=== PATIENT | female | born 1985 | race Native Hawaiian/Other Pacific Islander ===

== ENCOUNTER 2017-12-08 07:46 | Inpatient (IN) | payer OTHER ==
[2017-12-08] MEDS ORDERED: Lactated Ringer's 1,000 ML IV ONE (08:00)
[2017-12-08] MEDS ORDERED: ceFAZolin IV 2 gm in Dextrose 2 GM/50 ML BAG IVPB ONE (08:00)
[2017-12-08] MEDS ORDERED: Oxytocin 30 UNIT 30 UNITS/500 ML BAG IV ONE (08:03)
[2017-12-08] MEDS ORDERED: ePHEDrine 50 mg/ml Inj ONE (08:14)
[2017-12-08] MEDS ORDERED: Morphine 1 mg/ml preservative-free Inj(Duramorph) ONE (08:14)
[2017-12-08] MEDS ORDERED: Phenylephrine 10 mg/ml Inj ONE (08:14)
[2017-12-08 08:32] LABS: BASO % 0.6 % (0.0-2.0); EOS # 0.2 K/uL (0.0-0.7); EOS % 1.9 % (0.0-4.0); HEMOGLOBIN 12.9 g/dL (12.0-16.0); LYMPH # 1.6 K/uL (1.0-4.3); LYMPH % 19.4 % (20.0-40.0); MEAN CELL VOLUME 88.7 fl (81.0-99.0); MEAN CORPUSCULAR HEMOGLOBIN 30.1 pg (27.0-31.0); MEAN PLATELET VOLUME 7.8 fl (7.2-11.7); MONO # 0.9 K/uL (0.0-0.8); NEUT # 5.4 K/uL (1.8-7.0); NEUT % 67.1 % (50.0-75.0); NRBC % 0.1 % (0.0-0.0); RBC 4.29 Mil/uL (3.80-5.20); RED CELL DISTRIBUTION WIDTH 13.7 % (11.5-14.5); WHITE BLOOD COUNT 8.1 K/uL (4.8-10.8)
[2017-12-08] MEDS ORDERED: Cellulose Hemostat 2X3 Sheet ONE (10:33)
[2017-12-08] MEDS ORDERED: Morphine 1 mg/ml preservative-free Inj(Duramorph) EPI ONE (12:40)
[2017-12-08] MEDS ORDERED: DiphenhydrAMINE 50 mg/ml Inj IVP PRN (12:40)
[2017-12-08] MEDS ORDERED: DiphenhydrAMINE 50 mg/ml Inj ONE (12:51)
[2017-12-08] MEDS: DiphenhydrAMINE 50 mg/ml Inj IVP PRN (17:57)
[2017-12-08] MEDS ORDERED: Lactated Ringer's 1,000 ML IV SCH (19:00)
--- NOTE | 2017-12-08 19:11 | OBADHP ---
Datetime: 12/08/2017 08:00 Admit Comment, IP Provider: HPI: Vickey is a 32 year old at 39.2 weeks who presents for a repeat . LMP 03/08/2017 with initial dating US at 9 weeks 4 days, condordant with LMP. She denies any contractions, vaginal bleeding or LOF. Good movement currently. ROS: as above, otherwise negative History - at term, urgent due to arrest of dilation and chorioamnionitis, that spent 7 da ys in the NICU for observation - 1 SAB problems Diagnosed with gestational diabetes, currently diet controlled PMH Denies PSH Family History Not significant Medications PNV Allergies Crabs NKDA Social Lives at home with her and daughter, no alcohol, tobacco or drug use OBJECTIVE See PE section labs: A+, antibody neg, Hep B neg, HIV nonreactive, RPR nonreactive, GTT abnormal, GBS ne g, GC/chlamydia neg Assessment/Plan: 32 yo GDMA1 at 39.2 here for repeat . - Pre-op orders entered - Risks, benefits, alternatives discussed with patient and consent form signed Abdomen - PN: Normal Lungs - PN: Normal Heart - PN: Normal HEENT - PN: Normal General - PN: Normal IP Fetus A Comments: Reactive NST FHR - Baseline A Provider: 135 Gestation - Est Wks by US: 39.2 NICHD Variability Prov Fetus A: Moderate 6-25bpm NICHD Accel Fetus A IP Provider: [id number] NICHD Decel Fetus A IP Provider: None IP Adm Impression: Term, intrauterine IP Admit Plan: Admit to unit; Initiate Section protocol
--- NOTE | 2017-12-08 19:14 | OBDS ---
DELIVERY PERSONNEL Delivery Doctor: Gumaro Gaytan MD Tablet Repair: [facility] Anesthesiologist: Dr Mg Resident: Dr Hartley (Fellow) MATERNAL INFORMATION Delivery Anesthesia: Spinal Medications in Delivery: Pitocin Estimated Blood Loss (ml): 800 Placenta Cultured: No Maternal Complications: None Provider Comments: Repeat low flap transverse section via Pfannenstiel incision. Patient de livered viable infant male with Apgars of 9 and 9 at one and 5 minutes respectively. Normal uterus, n ormal tubes and ovaries bilaterally. Estimated blood loss 800 mL Fluids 1500 mL lactated Ringer Urine output 300 mL No complications. LABOR SUMMARY EDC: 12/13/2017 00:00 No. Babies in Womb: 1 Attempted: No Labor Anesthesia: None LABOR INFORMATION Reason for Induction: Not Applicable Oxytocin: N/A Group B Beta Strep: Negative Antibiotics # of Doses: 1 Antibiotics Time of Last Dose: Ancef 2 grams IVPB @ 0945 Steroids Given: None Reason Steroids Not Administered: Not Applicable MEMBRANES Membranes Rupture Method: Artificial Rupture of Membranes: 12/08/2017 10:19 Length of Rupture (hrs): 0.02 Amniotic Fluid Color: Clear Amniotic Fluid Amount: Moderate Amniotic Fluid Odor: Normal STAGES OF LABOR Stage 3 hrs: 0 Stage 3 min: 1 CSECTION DELIVERY Primary Indication: Repeat Elective CSection Urgency: Elective CSection Incidence: Repeat Labor: N/A CSection Incision: Lower Uterine Transverse BABY A INFORMATION Delivery Date/Time: 12/08/2017 10:20 Method of Delivery: Born in Route : No : N/A Forceps: N/A Vacuum Extraction: N/A Shoulder Dystocia : No SHOULDER DYSTOCIA BABY A Infant Delivery Date/Time: 12/08/2017 10:20 PRESENTATION/POSITION BABY A Presentation: Cephalic Cephalic Presentation: Vertex Breech Presentation: N/A PLACENTA INFORMATION BABY A Placenta Delivery Time : 12/08/2017 10:21 Placenta Method of Delivery: Expressed Placenta Status: Delivered SCORES BABY A Heart Rate 1 min: >100 bpm Resp Effort 1 min: Good Cry Reflex Irritability 1 min: Cough or Sneeze or Pulls Away Muscle Tone 1 min: Active Motion Color 1 min: Body [place], Extremities Blue Resuscitation Effort 1 min: Tactile Stimulation SCORE 1 MIN: 9 Heart Rate 5 min: >100 bpm Resp Effort 5 min: Good Cry Reflex Irritability 5 min: Cough or Sneeze or Pulls Away Muscle Tone 5 min: Active Motion Color 5 min: Body [place], Extremities Blue Resuscitation Effort 5 min: N/A SCORE 5 MIN: 9 INFANT INFORMATION BABY A Gestational Age at Delivery: 39.2 Gestational Status: Term Infant Outcome : Liveborn Condition : Stable Sex: Male IDENTIFICATION/MEDS BABY A ID Band Number: [id number] ID Band Location: Left Leg; Left Arm Vitamin K Given : Not Given Erythromycin Given: Not Given WEIGHT/LENGTH BABY A Birthweight (gms): 3740 Infant Weight (lb): 8 Infant Weight (oz): 4 CORD INFORMATION BABY A No. Cord Vessels: 3 Nuchal Cord : N/A Nuchal Cord Other: n/a True Knot: n/a Cord pH Baby Arterial: n/a Cord pH Baby Venous: n/a Cord Blood Taken: Yes Banking/Donate Info: n/a Infant Suction: Mouth ASSESSMENT BABY A Infant Complications: None Physical Findings at Delivery: Within Normal Limits Infant Respirations: Appears Normal Fish Smoker/ALS Called : No Infant Care By: Dr Napier/Kennedy garcia /María Transferred To: Remains with Mother
--- NOTE | 2017-12-08 19:22 | OBDS ---
DELIVERY PERSONNEL Delivery Doctor: Gumaro Gaytan MD Screw Machine Operator [place] Type: [facility] Anesthesiologist: Dr Mg Resident: Dr Hartley (Fellow) MATERNAL INFORMATION Delivery Anesthesia: Spinal Medications in Delivery: Pitocin Estimated Blood Loss (ml): 800 Placenta Cultured: No Maternal Complications: None Provider Comments: Repeat low flap transverse section via Pfannenstiel incision. Patient de livered viable infant male with Apgars of 9 and 9 at one and 5 minutes respectively. Normal uterus, n ormal tubes and ovaries bilaterally. Estimated blood loss 800 mL Fluids 1500 mL lactated Ringer Urine output 300 mL No complications. LABOR SUMMARY EDC: 12/13/2017 00:00 No. Babies in Womb: 1 Attempted: No Labor Anesthesia: None LABOR INFORMATION Reason for Induction: Not Applicable Oxytocin: N/A Group B Beta Strep: Negative Group B Beta Strep: Negative Antibiotics # of Doses: 1 Antibiotics Time of Last Dose: Ancef 2 grams IVPB @ 0945 Steroids Given: None Reason Steroids Not Administered: Not Applicable MEMBRANES Membranes Rupture Method: Artificial Rupture of Membranes: 12/08/2017 10:19 Length of Rupture (hrs): 0.02 Amniotic Fluid Color: Clear Amniotic Fluid Amount: Moderate Amniotic Fluid Odor: Normal STAGES OF LABOR Stage 3 hrs: 0 Stage 3 min: 1 CSECTION DELIVERY Primary Indication: Repeat Elective CSection Urgency: Elective CSection Incidence: Repeat Labor: N/A CSection Incision: Lower Uterine Transverse BABY A INFORMATION Delivery Date/Time: 12/08/2017 10:20 Method of Delivery: Born in Route : No : N/A Forceps: N/A Vacuum Extraction: N/A Shoulder Dystocia : No SHOULDER DYSTOCIA BABY A Infant Delivery Date/Time: 12/08/2017 10:20 PRESENTATION/POSITION BABY A Presentation: Cephalic Cephalic Presentation: Vertex Breech Presentation: N/A PLACENTA INFORMATION BABY A Placenta Delivery Time : 12/08/2017 10:21 Placenta Method of Delivery: Expressed Placenta Status: Delivered SCORES BABY A Heart Rate 1 min: >100 bpm Resp Effort 1 min: Good Cry Reflex Irritability 1 min: Cough or Sneeze or Pulls Away Muscle Tone 1 min: Active Motion Color 1 min: Body [place], Extremities Blue Resuscitation Effort 1 min: Tactile Stimulation SCORE 1 MIN: 9 Heart Rate 5 min: >100 bpm Resp Effort 5 min: Good Cry Reflex Irritability 5 min: Cough or Sneeze or Pulls Away Muscle Tone 5 min: Active Motion Color 5 min: Body [place], Extremities Blue Resuscitation Effort 5 min: N/A SCORE 5 MIN: 9 INFORMATION BABY A Gestational Age at Delivery: 39.2 Gestational Status: Term Infant Outcome : Liveborn Infant Condition : Stable Infant Sex: Male IDENTIFICATION/MEDS BABY A ID Band Number: [id number] ID Band Location: Left Leg; Left Arm Vitamin K Given : Not Given Erythromycin Given: Not Given WEIGHT/LENGTH BABY A Birthweight (gms): 3740 Infant Weight (lb): 8 Weight (oz): 4 CORD INFORMATION BABY A No. Cord Vessels: 3 Nuchal Cord : N/A Nuchal Cord Other: n/a True Knot: n/a Cord pH Baby Arterial: n/a Infant Cord pH Baby Venous: n/a Cord Blood Taken: Yes Banking/Donate Info: n/a Infant Suction: Mouth ASSESSMENT BABY A Complications: None Physical Findings at Delivery: Within Normal Limits Respirations: Appears Normal Well Service Floor Worker/ALS Called : No Care By: Dr Napier/Kennedy garcia /María Transferred To: Remains with Mother
[2017-12-09] MEDS: DiphenhydrAMINE 50 mg/ml Inj IVP PRN (00:51)
--- NOTE | 2017-12-09 05:34 | OP ---
Copied To: Chevy Gaytan MD Attending MD: Chevy Gaytan MD PROCEDURE DATE: 12/08/2017 PREOPERATIVE DIAGNOSIS: Elective repeat section at 39 weeks gestational age. POSTOPERATIVE DIAGNOSIS: Elective repeat section at 39 weeks gestational age. OPERATION PERFORMED: Repeat low flap transverse section via Pfannenstiel incision. OPERATING FINDINGS: Viable infant male with Apgars of 9 and 9 in one and five minutes respectively, normal uterus, normal tubes and ovaries bilaterally, [id number] adhesions between the uterus and omentum and anterior abdominal wall. ESTIMATED BLOOD LOSS: 800 mL. FLUIDS: 1500 mL Lactated Ringer's. URINE OUTPUT: 300 mL of clear urine at the end of procedure. SURGEON: Chevy Gaytan MD PICTURE COPYIST: Dr. Hartley ANESTHESIOLOGIST: Dr. Durán ANESTHESIA: Spinal. COMPLICATIONS: None. DESCRIPTION OF PROCEDURE: The patient was taken to the operating room where spinal anesthesia was found to be adequate. The patient was prepped and draped in a normal sterile fashion in the dorsal supine position with leftward tilt. A Pfannenstiel skin incision was made with a scalpel. This was carried down through to the underlying layer of fascia with the scalpel. Midline dissection was made in the fascial layer with the scalpel. The fascial incision was then extended bilaterally sharply with curved Bonds scissors. The fascial layer was from the underlying rectus muscles both bluntly and sharply with curved Bonds scissors. The rectus muscles were at the midline. The peritoneum was then identified, tented upward with Cindi clamps x2, and entered sharply with Metzenbaum scissors. This peritoneal incision was then extended superiorly and inferiorly with good visualization of the urinary bladder. The bladder blade was inserted into the abdomen. The vesicouterine peritoneum was then identified, tented up with Cindi clamps x2, and entered sharply with Metzenbaum scissors. This peritoneal incision was then extended bilaterally with Metzenbaum scissors. The bladder flap was created digitally. The [place] retractor was placed over the urinary bladder. The uterus was incised with the scalpel. The uterine incision was extended bilaterally bluntly. The 's head was delivered atraumatically. Nose and mouth were suctioned with bulb suction. The remainder of the was delivered without complication. The cord was clamped and cut. The was handed off to awaiting pediatricians. The placenta was removed manually. The uterus was cleared of all clots and debris. The uterine incision was repaired with 0 Vicryl in a running, locked fashion. Reinspection of the uterine incision proved excellent hemostasis. The abdomen and pelvis were irrigated with copious amounts of warm normal saline. Reinspection of the uterine incision proved excellent hemostasis. All instruments were removed from the patient. The peritoneal layer was closed with a running stitch of 2-0 chromic. The rectus muscles were reapproximated with a running stitch of 2-0 chromic. The fascial layer was closed with a running stitch of 0 Vicryl. Subcutaneous tissue was closed with a running stitch of 3-0 plain. The skin was closed with a subcutaneous stitch of 3-0 Vicryl. The patient tolerated the procedure well. All sponge count, lap count, and needle counts were correct x2. The patient was given 1 g of Ancef just prior to the beginning of the procedure. There were no complications. The patient was taken to the recovery room in awake and stable condition. Chevy Gaytan MD
[2017-12-09 06:32] LABS: HEMOGLOBIN 10.3 g/dL (12.0-16.0); MEAN CELL VOLUME 88.6 fl (81.0-99.0); MEAN CORPUSCULAR HEMOGLOBIN 30.6 pg (27.0-31.0); MEAN CORPUSCULAR HGB CONC 34.5 g/dL (33.0-37.0); RBC 3.37 Mil/uL (3.80-5.20); RED CELL DISTRIBUTION WIDTH 13.7 % (11.5-14.5); WHITE BLOOD COUNT 9.8 K/uL (4.8-10.8)
[2017-12-09] MEDS ORDERED: Multivitamin With Minerals Tab PO SCH (09:00)
[2017-12-09] MEDS: Multivitamin With Minerals Tab PO SCH (09:11)
--- NOTE | 2017-12-09 10:51 | OBPPN ---
Datetime: 12/09/2017 10:47 PP Pain Prov: Within normal limits PP Nausea Prov: Denies PP Flatus Prov: Yes PP Breasts Prov: Normal PP Heart Prov: Normal PP Lungs Prov: Normal PP Abdomen/Uterus Prov: Normal PP Lochia Prov: Normal PP Vulva/Perineum Prov: Normal PP CVA Tenderness Prov: Normal PP Extremities Prov: Normal PP Comments Phys Exam Prov: Abd: Soft,NT, BS - present UT - Firm Incison: Clean and dry PP Impression Prov: Normal progression PP Plan Prov: Continue present management PP Progress Note Prov: S/P Repeat Delivery, POD #1 Clinically Stable. Plan: Continue Care. Encourage ambulation
[2017-12-09] MEDS ORDERED: Oxycodone/Acetaminophen 5/325 mg Tab PO PRN (19:02)
[2017-12-09] MEDS: Oxycodone/Acetaminophen 5/325 mg Tab PO PRN (19:24)
[2017-12-10] MEDS: Oxycodone/Acetaminophen 5/325 mg Tab PO PRN ×4 (03:30→22:22)
[2017-12-10] MEDS: Multivitamin With Minerals Tab PO SCH (08:16)
--- NOTE | 2017-12-10 11:13 | OBPPN ---
Datetime: 12/10/2017 11:07 PP Pain Prov: Within normal limits PP Nausea Prov: Denies PP Flatus Prov: Yes PP Breasts Prov: Normal PP Heart Prov: Normal PP Lungs Prov: Normal PP Abdomen/Uterus Prov: Normal PP Lochia Prov: Normal PP Vulva/Perineum Prov: Normal PP CVA Tenderness Prov: Normal PP Extremities Prov: Normal PP Comments Phys Exam Prov: Abd: Soft, NT, BS- present Uterus- Firm No calf tenderness Bilaterally PP Impression Prov: Normal progression PP Plan Prov: Continue present management PP Progress Note Prov: S/P Repeat Section, POD #2 Clinically Stable. Plan: Continue care.
[2017-12-11] MEDS: Oxycodone/Acetaminophen 5/325 mg Tab PO PRN (05:23)
--- NOTE | 2017-12-11 10:40 | OBPPN ---
Datetime: 12/11/2017 10:36 PP Pain Prov: Within normal limits PP Nausea Prov: Denies PP Flatus Prov: Yes PP Breasts Prov: Normal PP Heart Prov: Normal PP Lungs Prov: Normal PP Abdomen/Uterus Prov: Normal PP Lochia Prov: Normal PP Vulva/Perineum Prov: Normal PP CVA Tenderness Prov: Normal PP Extremities Prov: Normal PP Comments Phys Exam Prov: Fundus firm under umbilicus Incision clean/dry/intact PP Impression Prov: Normal progression PP Plan Prov: Continue present management PP Progress Note Prov: Patient denies CP, no SOB, no N/V, tolerating PO diet, ambulating/voiding wel l, mild lochia, abdominal pain tolerable with meds A/P POD #3 1. Discharge home 2. Discharge instructions reviewed IP PP Procedures: None Vital Signs Provider PP: Reviewed; Within Normal Limits
--- NOTE | 2017-12-11 10:40 | OBDCSUM ---
Datetime: 12/11/2017 10:37 Discharged to, Provider: Home Follow up at, Provider: OB Disch Instr Activity: Normal activity Disch Instr Diet: Regular Discharge Instructions, Provider: Routine instructions given Discharge Diagnosis, Provider: Term Delivered Discharge Time: 12/11/2017 10:38 Follow up in weeks, Provider: 1 wk and 6 wks Disch Referrals: None Contraception discussed, Prov: Yes
[2017-12-11 16:29] VITALS: BP 131/59; PULSE 97; RESP 20; TEMP 98.3; O2SAT 99
== END 2017-12-11 11:45 | disposition home or self-care (01) | DRG 766 ==
LOC: H.EROB2 07:46 → H.L&D 08:24 → H.OB/GYN 15:47
PROVIDERS: ADMIT Obstetrics & Gynecology; ATTEND Obstetrics & Gynecology
PROC: 10D00Z1 Extraction of Products of Conception, Low, Open Approach (ICD-10-PCS; principal; 2017-12-08)
PROC: 4A1HXCZ Monitoring of Products of Conception, Cardiac Rate, External Approach (ICD-10-PCS; 2017-12-08)
DX: O34.211 Maternal care for low transverse scar from previous cesarean delivery (principal); O24.420 Gestational diabetes mellitus in childbirth, diet controlled; Z37.0 Single live birth; Z3A.39 39 weeks gestation of pregnancy